=== PATIENT | female | born 1980 | race Caucasian/White ===

== ENCOUNTER → 2019-07-06 | Outpatient (CLI) | payer OTHER ==
--- NOTE | 2019-07-06 17:50 | ECHOS ---
STRESS ECHOCARDIOGRAM INDICATIONS: History of chest pain. MEDICATIONS: Xanax, buspirone, Flonase. BASELINE HEART RATE: 60 BASELINE BLOOD PRESSURE: 95/50, 111/56 MAXIMUM HEART RATE: 150 MAXIMUM BLOOD PRESSURE: 156/62 85% MPHR: 156 100% MPHR: 183 METS: 12.1 MAXIMUM STAGE REACHED: IV TOTAL EXERCISE TIME: 12:07 CLINICAL INFORMATION: Baseline heart rate 60 beats per minute. Baseline blood pressure 95/50 mmHg. Repeat blood pressure 111/66 mmHg. Baseline 12-lead ECG shows normal sinus rhythm with normal cardiac intervals. Patient exercised on Vasquez protocol for 12 minutes 7 seconds, achieving a peak heart rate of 150 beats per minute and normal blood pressure response to exercise. There was no ECG evidence for ischemia. No arrhythmias were noted. The patient had discomfort of the legs and was short of breath at peak exercise. There was no ECG evidence for ischemia. No arrhythmias were noted. The baseline 2D echo images showed normal LV size and systolic function without segmental wall motion abnormalities. At peak exercise, there was excellent augmentation of overall LV contractility without development of any wall motion abnormalities. At recovery, regional global LV systolic function remained normal. IMPRESSION: 1. No ECG or echocardiographic evidence for ischemia. 2. Good exercise capacity. The patient was short of breath by 9 minutes into the stress test. MMODL / IJN: [id number] /
== END | disposition home or self-care (01) ==
LOC: RADNMMAIN 09:04
PROVIDERS: ATTEND Family Medicine
DX: R06.02 Shortness of breath (principal)
CPT/HCPCS: 93351

== ENCOUNTER → 2019-07-10 | Outpatient (CLI) | payer OTHER ==
--- NOTE | 2019-07-28 06:20 | EM ---
EVENT MONITOR 14-day event monitor. INDICATION: Palpitations. Underlying rhythm is sinus with episodes of sinus tachycardia and there were frequent PVCs noted throughout the study. CONCLUSIONS: This 14 day event monitor shows sinus rhythm with frequent PVCs and episodes of sinus tachycardia. The patient had palpitations with PVCs and chest discomfort with sinus tachycardia. MMODL / IJN: [id number] /
== END | disposition home or self-care (01) ==
LOC: RADECHMAIN 14:17
PROVIDERS: ATTEND Family Medicine
DX: I49.3 Ventricular premature depolarization (principal); R00.0 Tachycardia, unspecified; R00.2 Palpitations
CPT/HCPCS: 93270

== ENCOUNTER 2021-01-15 06:30 | Day surgery (SDC) | payer BC, OTHER ==
[2021-01-14 09:16] VITALS: BMI 27.1
[~2021-01-15 06:30] MED LIST: DEXAMETHASONE SOD PHOSPHATE 4 MG/ML 1 ML VIAL IV ONE; DEXAMETHASONE SOD PHOSPHATE 4 MG/ML 1 ML VIAL IV PRN; FAMOTIDINE 20 MG/2 ML VIAL IV PRN; LACTATED RINGERS 1,000 ML IV SCH; LIDOCAINE 1% (10MG/ML) FOR IV START INTRADERMA PRN; ONDANSETRON 4 MG/2 ML VIAL IVP ONE; ONDANSETRON 4 MG/2 ML VIAL IVP PRN; OXYMETAZOLINE 0.05% NASL SPRAY 1 SPRAY BOTTLE EA NOSTRIL PRN
[2021-01-15] MEDS ORDERED: SCOPOLAMINE 1.5MG/72HR PATCH TRANSDERM ONE (07:20)
[2021-01-15] MEDS ORDERED: MIDAZOLAM 2 MG/2 ML VIAL ONE (07:24)
[2021-01-15] MEDS ORDERED: SUCCINYLCHOLINE CHLORIDE 100 MG/5 ML SYR IV ONE (07:24)
[2021-01-15] MEDS ORDERED: LIDOCAINE 1% INJ 10MG/ML (20 ML MDV) ONE (07:24)
[2021-01-15] MEDS ORDERED: fentaNYL (PF) 50 MCG/ML 2 ML AMP ONE (07:24)
[2021-01-15] MEDS ORDERED: PROPOFOL 10 MG/ML 20 ML VIAL IV ONE (07:24)
[2021-01-15] MEDS ORDERED: LIDOCAINE 1%-EPI 1:100,000 20 ML VIAL SQ ONE ×2 (07:47)
[2021-01-15] MEDS ORDERED: OFLOXACIN 0.3% OPHTH DROPS 5 ML BOTTLE LEFT EAR ONE (08:00)
[2021-01-15] MEDS ORDERED: BACITRACIN ZINC 500 UNIT/GM OINT 28.4 GM TUBE TOPICAL ONE (08:03)
--- NOTE | 2021-01-15 08:31 | P.OP ---
Date of Procedure: 01/15/21 Preoperative Diagnosis: Left chronic otitis media Adenoid hypertrophy Left neck cyst Postoperative Diagnosis: Same Procedure(s) Performed: Left ventilation tube placement Adenoidectomy Excision left neck cyst 2.7 cm with layered closure Anesthesia: AIDEN Surgeon: Hernandez Ann Estimated Blood Loss (ml): 2 Pathology: other (Adenoids, left neck cyst) Condition: stable Disposition: PACU Indications for Procedure: Is a 40-year-old white female with chronic middle ear effusion on the left as well as adenoid hypertrophy noted on nasal endoscopy with the workup for the left ear. Also chronic slowly enlarging left neck cyst Operative Findings: Left serous middle ear effusion, moderate adenoid hypertrophy, subcutaneous rounded cystic lesion left mid neck Description of Procedure: The patient was brought in the operative suite and placed in a supine position. The patient underwent induction of general anesthesia with oral endotracheal intubation without difficulty. The patient was prepped and draped in usual aseptic fashion. The microscope was positioned over the left ear and cerumen was cleaned from the external auditory canal. An anterior-inferior myringotomy was placed in radial fashion and the middle ear effusion was aspirated. A 1.1 mm collar bobbin ventilation tube was placed without difficulty and Floxin otic suspension was placed followed by sterile cotton ball. The left neck was reprepped and draped in the usual aseptic fashion. 1% lidocaine with 1 100,000 epinephrine was infused subcutaneously and field block fashion. An elliptical incision was fashion over the cyst left mid neck to include the overlying skin as there was a pore. The incision was carried sharply through the skin as scheduled cutaneous tissue down to the cyst itself which was then excised from the surrounding tissue grossly entirely. This appeared consistent with a sebaceous cyst. Hemostasis was gained with electrocautery. The wound was then closed in the subcutaneous layer with inverted interrupted 5-0 Vicryl suture skin closed with running locking 5-0 Prolene suture all by bacitracin ointment and a sterile Band-Aid. The McIvor mouth gag was placed and the soft palate was palpated. No submucous cleft was noted. Red He catheters placed in the right nasal cavity and pulled through the oropharynx for soft palate retraction. The nasopharynx was examined with a mirror examination adenoids were removed with adenoid curet. Nasopharyngeal pack was placed and left in place for 5 minutes and then removed and hemostasis was then gained with suction cautery. Once hemostasis was obtained the patient was suctioned in oral gastric fashion and the McIvor mouth gag was removed. The patient was allowed to emerge from general anesthesia having tolerated procedure well was extubated in the operating suite and transferred to postop recovery area in satisfactory condition
[2021-01-15] MEDS: fentaNYL (PF) 50 MCG/ML 2 ML AMP IV PRN ×2 (08:42→08:47)
[2021-01-15 08:46] VITALS: TEMP 96.8
[2021-01-15 08:48] VITALS: RESP 14
[2021-01-15] MEDS ORDERED: LACTATED RINGERS 1,000 ML IV ONE (09:10)
[2021-01-15 09:50] VITALS: BP 101/70; PULSE 68
== END 2021-01-15 10:32 | disposition home or self-care (01) ==
LOC: OR 06:30
PROVIDERS: ATTEND Otolaryngology
DX: H66.92 Otitis media, unspecified, left ear (principal); J35.2 Hypertrophy of adenoids; K09.9 Cyst of oral region, unspecified; H90.12 Conductive hearing loss, unilateral, left ear, with unrestricted hearing on the contralateral side; F32.9 Major depressive disorder, single episode, unspecified; Z91.048 Other nonmedicinal substance allergy status; K21.9 Gastro-esophageal reflux disease without esophagitis; F41.9 Anxiety disorder, unspecified; F17.200 Nicotine dependence, unspecified, uncomplicated; Z82.61 Family history of arthritis; Z82.49 Family history of ischemic heart disease and other diseases of the circulatory system; Z81.1 Family history of alcohol abuse and dependence; Z83.3 Family history of diabetes mellitus; Z84.1 Family history of disorders of kidney and ureter; Z79.899 Other long term (current) drug therapy; Z79.1 Long term (current) use of non-steroidal anti-inflammatories (NSAID)
CPT/HCPCS: 81025; 88304; 69436; 42831; 11423; J2250; J1100; J2405; J0690; J2001; J3010; J0330; J2704